=== PATIENT | male | born 1970 | race African-American/Black ===

== ENCOUNTER 2022-01-22 13:34 | Emergency (ER) | payer MEDICAID ==
[~2022-01-22] VITALS: Ht 167.6 cm; Wt 127.0 kg
--- NOTE | 2022-01-22 13:50 | NUR ---
RECIVED PT 51 YRS MALE CAME FROM HOME BY PRAMIC FOR ABDOMINAL TAP ASCITES RESPIRATION SPONT MILD SOB
--- NOTE | 2022-01-22 14:00 | NUR ---
EXAMIN BY DR. MARTINEZ
--- NOTE | 2022-01-22 14:10 | NUR ---
INSERTED ANGO CATH # 18 ON RT AC BLOOD DROW AND SENT TO LAB
[2022-01-22] MEDS ORDERED: FUROSEMIDE 40 MG/4 ML VIAL IV ONE (14:30)
[2022-01-22] MEDS ORDERED: FUROSEMIDE 40 MG/4 ML VIAL ONE (14:39)
[2022-01-22 14:51] LABS: BASOPHILS % (AUTO) 0.4 % (0.0-2.0); EOSINOPHILS % (AUTO) 2.9 % (0.0-6.0); HEMATOCRIT 33 % (39-51); HEMOGLOBIN 10.2 g/dL (13.5-17.5); LYMPHOCYTES # (AUTO) 0.8 K/uL (0.8-4.8); LYMPHOCYTES % (AUTO) 14.2 % (20.0-44.0); MEAN CORPUSCULAR HGB CONC 31 g/dl (31.0-36.0); MEAN CORPUSCULAR VOLUME 81 fL (80-96); MONOCYTES # (AUTO) 0.3 K/uL (0.1-1.30); MONOCYTES % (AUTO) 5.2 % (2.0-12.0); NEUTROPHILS # (AUTO) 4.3 K/uL (1.8-8.9); NEUTROPHILS % (AUTO) 77.3 % (43.0-81.0); PLATELET COUNT (AUTO) 206 K/uL (150-450); RED BLOOD CELL COUNT(AUTO) 4.01 MIL/uL (4.5-6.0); WHITE BLOOD COUNT (AUTO) 5.6 K/uL (4.3-11.0)
[2022-01-22 15:01] LABS: CALCIUM, SERUM 8.6 mg/dL (8.5-10.1); CARBON DIOXIDE 29 mmol/L (21-32); CHLORIDE 100 mmol/L (98-107); CREATININE 1.6 mg/dL (0.6-1.3); GLUCOSE 218 mg/dL (74-106); POTASSIUM 3.4 mmol/L (3.5-5.1); SODIUM SERUM 137 mmol/L (136-145); UREA NITROGEN, BLOOD 17 mg/dL (7-18)
[2022-01-22 15:14] LABS: ALANINE AMINOTRANSFERASE 20 U/L (12-78); ALBUMIN 3.6 g/dL (3.4-5.0); ALKALINE PHOSPHATASE 124 U/L (46-116); ASPARTATE AMINOTRANSFERASE 26 U/L (15-37); BILIRUBIN,DIRECT 0.3 mg/dL (0.0-0.2); TOTAL PROTEIN, SERUM 8.5 g/dL (6.4-8.2)
--- NOTE | 2022-01-22 16:35 | NUR ---
PT SIGN CONCENT FOR US GUIDED PARACENTESIS PT FULLY AND VERBLIZED UNDERSTOOD
--- NOTE | 2022-01-22 16:45 | NUR ---
DR. EDWARDS AT BED SIDE FOR US GUIDED PARACENTESIS OUTPUT 5 LITER
--- NOTE | 2022-01-22 18:00 | NUR ---
ABDOMINE SOFT DINESES ABDOMINALE PAIN
--- NOTE | 2022-01-22 18:30 | NUR ---
D/C INSTRACTION GIVEN TO PT FULLY UNDERSTOOD [PT WALKING OUT BEFOR MESERET D/C INSTRACTION
[2022-01-22 18:36] VITALS: BP 137/78
== END 2022-01-22 19:11 | disposition home or self-care (01) ==
LOC: ER 13:38
DX: R18.8 Other ascites (principal); I11.0 Hypertensive heart disease with heart failure; I50.9 Heart failure, unspecified; E11.9 Type 2 diabetes mellitus without complications
CPT/HCPCS: 49083; 99285; 96374; 71045; 85025; 80048; 80076; 36415; 84484; 85730; 83880; 93005; J1940; 76942-TC

== ENCOUNTER 2025-06-02 12:16 | Inpatient (IN) | payer OTHER ==
[~2025-06-02] VITALS: Ht 170.2 cm; Wt 91.2 kg
[2025-06-02 12:18] VITALS: TEMP 98.1
[2025-06-02 12:32] LABS: PLATELET COUNT (AUTO) 244 K/uL (150-450); RED BLOOD CELL COUNT(AUTO) 4.42 MIL/uL (4.5-6.0); RED CELL DISTRIBUTION WIDTH 16.0 % (11.5-15.0); WHITE BLOOD COUNT (AUTO) 3.8 K/uL (4.3-11.0)
[2025-06-02] MEDS ORDERED: FUROSEMIDE 20 MG/2 ML VIAL ONE (12:43)
[2025-06-02 12:48] LABS: CALCIUM, SERUM 8.9 mg/dL (8.5-10.1); CREATININE 1.1 mg/dL (0.6-1.3); SODIUM SERUM 143 mmol/L (136-145); UREA NITROGEN, BLOOD 16 mg/dL (7-18)
[2025-06-02] MEDS ORDERED: LEVO88TA5 PO (12:48)
[2025-06-02] MEDS ORDERED: EMPA10TA PO (12:48)
[2025-06-02] MEDS ORDERED: SACU1TAB PO (12:48)
[2025-06-02] MEDS ORDERED: AMIO200T5 PO (12:48)
[2025-06-02] MEDS ORDERED: ATOR80TA PO (12:48)
[2025-06-02] MEDS ORDERED: CARV6.25 PO (12:48)
[2025-06-02] MEDS ORDERED: ASPI-1169 PO (12:48)
[2025-06-02] MEDS ORDERED: SPIR25TA6 PO (12:48)
[2025-06-02] MEDS: FUROSEMIDE 20 MG/2 ML VIAL IV ONE (12:57)
[2025-06-02] MEDS ORDERED: ONDANSETRON HCL/PF 4 MG/2 ML VIAL IVP PRN (15:30)
[2025-06-02] MEDS ORDERED: MORPHINE SULFATE INJ 4 MG/ML DISP.SYRIN IV PRN (15:30)
[2025-06-02] MEDS ORDERED: Z GUARD REMEDY 4 OZ OINT TP PRN (15:30)
[2025-06-02] MEDS ORDERED: ACETAMINOPHEN 325 MG TABLET PO PRN (15:30)
[2025-06-02] MEDS ORDERED: MAG HYDROX/AL HYDROX/SIMETH 30 ML UDC PO PRN (15:30)
[2025-06-02] MEDS ORDERED: MAGNESIUM HYDROXIDE 30 ML UDC PO PRN (15:30)
[2025-06-02] MEDS ORDERED: ASPIRIN 81 MG TAB.CHEW ONE (16:19)
[2025-06-02] MEDS ORDERED: LORAZEPAM 1 MG TABLET ONE (16:24)
[2025-06-02] MEDS: LORAZEPAM 1 MG TABLET PO SCH (16:27)
[2025-06-02] MEDS: ASPIRIN EC 81 MG TABLET.DR PO ONE (16:29)
[2025-06-02] MEDS ORDERED: ENOXAPARIN SODIUM 40 MG/0.4 ML DISP.SYRIN SQ SCH (17:00)
[2025-06-02] MEDS ORDERED: INSULIN REGULAR, HUMAN 100 UNIT/ML 3 ML VIAL SQ PRN (17:00)
[2025-06-02] MEDS ORDERED: DEXTROSE 50%-WATER 50 ML DISP.SYRIN IV PRN (17:00)
[2025-06-02 17:30] VITALS: BP 132/76; O2SAT 96
[2025-06-02] MEDS ORDERED: BLOOD SUGAR DIAGNOSTIC 1 EACH STRIP IN SCH (17:30)
[2025-06-03] MEDS ORDERED: PANTOPRAZOLE 40 MG TABLET.DR PO SCH (07:30)
[2025-06-03] MEDS ORDERED: CARVEDILOL 6.25 MG TABLET PO SCH (17:00)
[2025-06-03] MEDS ORDERED: ATORVASTATIN 40 MG TABLET PO SCH (18:00)
[2025-06-04] MEDS ORDERED: SPIRONOLACTONE 25 MG TABLET PO SCH (07:30)
[2025-06-04] MEDS ORDERED: LEVOTHYROXINE SODIUM 88 MCG TABLET PO SCH (07:30)
[2025-06-04] MEDS ORDERED: AMIODARONE HCL 200 MG TABLET PO SCH (09:00)
[2025-06-04] MEDS ORDERED: EMPAGLIFLOZIN 10 MG TABLET PO SCH (09:00)
[2025-06-04] MEDS ORDERED: ASPIRIN 81 MG TAB.CHEW PO SCH (09:00)
== END 2025-06-02 18:00 | disposition left against medical advice (07) | DRG 194 ==
LOC: ER 12:19 → TELE IN 16:29
PROVIDERS: ATTEND Nurse Practitioner Acute Care
DX: I11.0 Hypertensive heart disease with heart failure (principal); Z59.00 Homelessness unspecified; Z95.1 Presence of aortocoronary bypass graft; I50.23 Acute on chronic systolic (congestive) heart failure; E11.9 Type 2 diabetes mellitus without complications; E03.9 Hypothyroidism, unspecified; Z68.31 Body mass index [BMI] 31.0-31.9, adult; I25.10 Atherosclerotic heart disease of native coronary artery without angina pectoris; Z91.199 Patient's noncompliance with other medical treatment and regimen due to unspecified reason; Z95.5 Presence of coronary angioplasty implant and graft; I48.91 Unspecified atrial fibrillation; E78.5 Hyperlipidemia, unspecified; Z79.890 Hormone replacement therapy; Z79.84 Long term (current) use of oral hypoglycemic drugs; Z79.899 Other long term (current) drug therapy; Z79.82 Long term (current) use of aspirin; E66.9 Obesity, unspecified
CPT/HCPCS: 36415; 71045-TC; 80048-TC; 83880; 84484-TC; 85025-TC; G0378; J1815; J1938